=== PATIENT | female | born 1985 | race Caucasian/White ===

== ENCOUNTER 2017-02-24 18:20 | Emergency (ER) | payer OTHER ==
[2017-02-24] MEDS ORDERED: PROPARACAINE 0.5% OPHTH DROPS 15 ML ONE (18:26)
[2017-02-24] MEDS ORDERED: TETANUS/DIPHTHERIA/PERTUSSIS 0.5 ML SYRINGE IM ONE ×2 (18:38→18:44)
[2017-02-24] MEDS ORDERED: levoFLOXacin 0.5% OPHTH DROPS 5 ML LEFTEYE STA (18:38)
[2017-02-24] MEDS ORDERED: HYDROcod/ACET 5/325 Prepack 6 PO STA (19:44)
[2017-02-24] MEDS ORDERED: HYDROcod/ACET 5/325 Prepack 6 PO ONE (19:46)
== END 2017-02-24 20:07 | disposition home or self-care (01) ==
DX: S05.02XA Injury of conjunctiva and corneal abrasion without foreign body, left eye, initial encounter (principal); W22.8XXA Striking against or struck by other objects, initial encounter; Y93.H9 Activity, other involving exterior property and land maintenance, building and construction; Y92.017 Garden or yard in single-family (private) house as the place of occurrence of the external cause; Z23 Encounter for immunization
CPT/HCPCS: 70480; 90471; 90715; 99283; A9270; J3490